=== PATIENT | female | born 1985 | race Caucasian/White ===

== ENCOUNTER → 2020-01-25 | Outpatient (CLI) | payer OTHER ==
[~2020-01-25] MED LIST: AZIT250 PO; BUPR100; BUPRENORPHN-NA1 EACH SL; DOCU100 PO; ESTNORT; FAMO40 PO; HYDACE10B PO; HYDACE5; HYDACE5 PO; LEVSOD50 PO; LORA1; LORA1 PO; LORA2; LORA2 PO; META800; METHI10; METHI10 PO; METO10; METO10 PO; METO100 PO; METO100ER; NAPR550 PO; ONDA4 PO; OXYACE5T PO; PRED20 PO; PROC25S PR; PROM25S PR; RXONDA4ODT MM; SERT100; SULTRIDS PO; [UNRECOGNIZED DRUG - OTHER]
== END | disposition home or self-care (01) ==
LOC: LAB SHORT 10:44 → LAB EV 10:44
DX: B37.49 Other urogenital candidiasis (principal)
CPT/HCPCS: 87077; 87086; 87186

== ENCOUNTER 2024-12-30 21:32 | Emergency (ER) | payer OTHER ==
[~2024-12-30] VITALS: Ht 154.9 cm; Wt 68.0 kg
[2024-12-30 22:13] LABS: BASOPHILS ABSOLUTE AUTO 0.08 K/mm3 (0.00-0.23); BASOPHILS PERCENT AUTO 2 % (0-2); EOSINOPHILS ABSOLUTE AUTO 0.03 K/mm3 (0.00-0.68); EOSINOPHILS PERCENT AUTO 1 % (0-6); Hematocrit 30.2 % (33.0-51.0); Hemoglobin 11.3 g/dL (11.5-16.0); IMMATURE GRAN ABSOLUTE AUTO 0.05 K/mm3 (0.00-0.10); IMMATURE GRAN PERCENT AUTO 1 % (0-1); LYMPHOCYTES ABSOLUTE AUTO 0.96 K/mm3 (0.84-5.20); LYMPHOCYTES PERCENT AUTO 18 % (21-46); MONOCYTES ABSOLUTE AUTO 0.54 K/mm3 (0.16-1.47); MONOCYTES PERCENT AUTO 10 % (4-13); Mean Corpuscular HGB 40.2 pg (26.0-34.0); Mean Corpuscular HGB Conc 37.4 g/dL (31.5-36.5); Mean Corpuscular Volume 108 fL (80-100); Mean Platelet Volume 10.6 fL (9.1-12.4); NEUTROPHILS ABSOLUTE AUTO 3.56 K/mm3 (1.96-9.15); NEUTROPHILS PERCENT AUTO 68 % (41-73); Platelet Count 168 K/mm3 (150-400); RDW Coefficient Variation 12.1 % (11.7-14.2); RDW Standard Deviation 47.8 fL (35.1-46.3); Red Blood Cell Count 2.81 M/mm3 (3.80-5.20); White Blood Cell Count 5.22 K/mm3 (4.00-11.30)
[2024-12-30 22:41] LABS: Albumin, Blood 3.9 g/dL (3.4-5.0); Albumin/Globulin Ratio 1.1 (0.8-1.8); Bilirubin, Total 0.6 mg/dL (0.1-1.0); Bun/Creatinine Ratio 7.1 (12.0-20.0); Calcium, Blood 8.7 mg/dL (8.5-10.1); Creatinine, Blood 0.57 mg/dL (0.40-1.00); Globulin, Blood 3.5 g/dL (2.2-4.0); Potassium, Blood 3.3 mmol/L (3.5-5.5); Total Protein, Blood 7.4 g/dL (6.4-8.2)
[2024-12-31] MEDS ORDERED: NS 1,000 ML IV SCH ×2 (01:05→01:25)
[2024-12-31 01:15] LABS: Source, Urine Clean Catch
[2024-12-31] MEDS ORDERED: Potassium Chloride 20 MEQ TabCR PO ONE (01:15)
[2024-12-31 01:24] LABS: Bilirubin, Urine Neg (Neg); Blood, Urine Neg (Neg); Glucose Qualitative, Urine Neg (Neg); Ketones, Urine Neg (Neg); Leukocyte Esterase, Urine Neg (Neg); Nitrite, Urine Neg (Neg); Protein, Urine Neg (Neg); Specific Gravity, Urine 1.005 (1.003-1.022); Urobilinogen, Urine NORM (Normal)
[2024-12-31 01:29] LABS: Appearance, Urine Clear (Clear); Color, Urine Pale Yellow (P-Yellow)
[2024-12-31 02:04] LABS: Magnesium, Blood 1.2 mg/dL (1.6-2.4)
[2024-12-31] MEDS ORDERED: Magnesium Sulf 2 GM/Water 50ML 50 ML IV ONE (03:10)
[2024-12-31 04:49] LABS: Free Thyroxine 0.12 ng/dL (0.70-1.60)
[2024-12-31 06:11] LABS: Bun/Creatinine Ratio 5.6 (12.0-20.0); Calcium, Blood 8.7 mg/dL (8.5-10.1); Creatinine, Blood 0.53 mg/dL (0.40-1.00); Potassium, Blood 4.2 mmol/L (3.5-5.5)
[2024-12-31 07:00] VITALS: BP 101/73
== END 2024-12-31 07:08 | disposition home or self-care (01) ==
LOC: ER 21:32
PROVIDERS: Internal Medicine; Student in an Organized Health Care Education/Training Program
DX: F10.20 Alcohol dependence, uncomplicated (principal); R10.9 Unspecified abdominal pain; Z79.52 Long term (current) use of systemic steroids; Z79.899 Other long term (current) drug therapy
CPT/HCPCS: 74177; 80048; 80053; 81003; 81025; 83690; 83735; 83880; 84439; 84443; 84703; 85025; 96361; 96365; 96366; 99284-25; A9270; J3475; J7030; Q9967

== ENCOUNTER 2025-04-08 03:30 | Inpatient (IN) | payer OTHER ==
[~2025-04-08] VITALS: Ht 154.9 cm; Wt 66.1 kg
[2025-04-08 04:47] LABS: BASOPHILS ABSOLUTE AUTO 0.07 K/mm3 (0.00-0.23); BASOPHILS PERCENT AUTO 1 % (0-2); EOSINOPHILS ABSOLUTE AUTO 0.04 K/mm3 (0.00-0.68); EOSINOPHILS PERCENT AUTO 1 % (0-6); Hematocrit 29.8 % (33.0-51.0); Hemoglobin 10.8 g/dL (11.5-16.0); IMMATURE GRAN ABSOLUTE AUTO 0.06 K/mm3 (0.00-0.10); IMMATURE GRAN PERCENT AUTO 1 % (0-1); LYMPHOCYTES PERCENT AUTO 27 % (21-46); MONOCYTES ABSOLUTE AUTO 0.35 K/mm3 (0.16-1.47); MONOCYTES PERCENT AUTO 7 % (4-13); Mean Corpuscular HGB 40.3 pg (26.0-34.0); Mean Corpuscular HGB Conc 36.2 g/dL (31.5-36.5); Mean Corpuscular Volume 111 fL (80-100); Mean Platelet Volume 11.1 fL (9.1-12.4); NEUTROPHILS ABSOLUTE AUTO 3.35 K/mm3 (1.96-9.15); NEUTROPHILS PERCENT AUTO 64 % (41-73); NRBC ABSOLUTE 0.02 K/mm3 (0.00-0.02); NRBC Auto 0.4 /100 WBC (0.0-0.2); Platelet Count 174 K/mm3 (150-400); RDW Coefficient Variation 16.8 % (11.7-14.2); Red Blood Cell Count 2.68 M/mm3 (3.80-5.20); White Blood Cell Count 5.27 K/mm3 (4.00-11.30)
[2025-04-08 05:02] LABS: Albumin/Globulin Ratio 1.2 (0.8-1.8); Bilirubin, Total 1.3 mg/dL (0.1-1.0); Bun/Creatinine Ratio 12.6 (12.0-20.0); Calcium, Blood 9.3 mg/dL (8.5-10.1); Creatinine, Blood 0.56 mg/dL (0.40-1.00); Globulin, Blood 3.4 g/dL (2.2-4.0); Potassium, Blood 3.3 mmol/L (3.5-5.5); Total Protein, Blood 7.4 g/dL (6.4-8.2)
[2025-04-08] MEDS ORDERED: Lactated Ringer's 1,000 ML IV SCH ×2 (08:25→16:00)
[2025-04-08 09:20] LABS: Free Thyroxine 0.11 ng/dL (0.70-1.60)
[2025-04-08] MEDS ORDERED: Potassium Chloride 20 MEQ TabCR PO ONE (10:45)
[2025-04-08 11:17] LABS: Magnesium, Blood 1.4 mg/dL (1.6-2.4); Phosphorus, Blood 3.6 mg/dL (2.5-4.9)
[2025-04-08] MEDS ORDERED: NS 1,000 ML IV ONE (11:58)
[2025-04-08] MEDS ORDERED: NS 1,000 ML IV SCH (12:00)
[2025-04-08 12:26] LABS: Albumin, Blood 3.5 g/dL (3.4-5.0); Albumin/Globulin Ratio 1.1 (0.8-1.8); Bilirubin, Total 1.4 mg/dL (0.1-1.0); Bun/Creatinine Ratio 14.4 (12.0-20.0); Creatinine, Blood 0.49 mg/dL (0.40-1.00); Globulin, Blood 3.3 g/dL (2.2-4.0); Potassium, Blood 4.5 mmol/L (3.5-5.5); Total Protein, Blood 6.8 g/dL (6.4-8.2)
[2025-04-08] MEDS ORDERED: Thiamine HCl 100 MG in NS 50 ML IV ONE (13:20)
[2025-04-08] MEDS ORDERED: PHENobarbitaL sodium 130 MG/ML VIAL IV ONE (13:40)
[2025-04-08] MEDS ORDERED: LORazepam 2 MG/ML 1ML Injection IV ONE (14:55)
[2025-04-08] MEDS ORDERED: LORazepam 2 MG/ML 1ML Injection IV PRN ×3 (16:00→16:05)
[2025-04-08] MEDS ORDERED: Levothyroxine Sodium 100 MCG Vial IV SCH (16:00)
[2025-04-08] MEDS ORDERED: Magnesium Hydroxide Conc 10 ML UDC PO PRN (16:05)
[2025-04-08] MEDS ORDERED: ChlordiazePOXIDE 25 MG Cap PO PRN ×2 (16:05)
[2025-04-08] MEDS ORDERED: Ondansetron 4 MG TAB PO PRN (16:05)
[2025-04-08] MEDS ORDERED: Potassium Chl 20MEQ/Water100ML 100 ML IV STA (16:10)
[2025-04-08] MEDS ORDERED: Magnesium Sulf 2 GM/Water 50ML 50 ML IV ONE (16:15)
[2025-04-08 16:24] LABS: IMMATURE RETIC FRACTION 14.3 % (2.3-16.0); RETIC HGB EQUIVALENT 43.6 pg (28.20-36.60); RETICULOCYTE ABSOLUTE 0.055 M/mm3 (0.0200-0.1100); RETICULOCYTE COUNT PERCENT 2.1 % (0.50-2.50)
[2025-04-08] MEDS ORDERED: Thiamine HCl 100 MG in NS 50 ML IV SCH (16:30)
[2025-04-08] MEDS ORDERED: Folic Acid 1 MG in NS 50 ML IV SCH (18:00)
[2025-04-08 18:38] VITALS: BP 114/89
[2025-04-08 19:12] LABS: Source, Urine Clean Catch
[2025-04-08 19:20] LABS: Appearance, Urine Clear (Clear); Bilirubin, Urine Neg (Neg); Blood, Urine Neg (Neg); Color, Urine Amber (P-Yellow); Glucose Qualitative, Urine Neg (Neg); Ketones, Urine 3+ (Neg); Leukocyte Esterase, Urine 1+ (Neg); Nitrite, Urine Neg (Neg); Protein, Urine 2+ (Neg); Specific Gravity, Urine 1.015 (1.003-1.022); Urobilinogen, Urine 1+ (Normal)
[2025-04-08 19:26] LABS: Bacteria Many /hpf; Mucus Mod (0-Heavy); Red Blood Cells, Urine 0-2 /hpf (0-2); Squamous Epithelial Cells Few /hpf (Few)
[2025-04-08 19:33] LABS: U Barbituate Screen DETECTED
[2025-04-08 19:34] LABS: U Amphetamine Screen Not Detected; U Benzodiazapine Screen DETECTED; U Buprenorphine Screen DETECTED; U Cannabinoids Screen Not Detected; U Cocaine Screen Not Detected; U Methadone Screen Not Detected; U Methamphetamine Screen Not Detected; U Opiates Screen Not Detected; U Oxycodone Screen Not Detected; U Phencyclidine Screen Not Detected
[2025-04-08 20:31] VITALS: BP 109/84
[2025-04-08] MEDS ORDERED: Docusate Sodium 100 MG Cap PO SCH (21:00)
[2025-04-08 23:04] VITALS: BP 103/84
[2025-04-09] VITALS (7 sets, daily range): BP systolic 90–109; BP diastolic 65–87
--- NOTE | 2025-04-09 00:54 | NUR ---
PT CIWA SCORES INCREASING, LAST CIWA SCORE 15, ATTEMPTING TO MEDICATE PT PER EMAR, PT REFUSING MEDICATIONS. EDUCATION PROVIDED REGARDING DIAGNOSIS, PLAN OF CARE, MEDICATION USAGE, ETC. PT STATED SHE DID NOT WANT TO STOP DRINKING YET, SHE REQUESTED TO HAVE MORE "PEOPLE IN HER ROOM", SHE ALSO STATED SHE WISHED TO LEAVE THE HOSPITAL. THIS RN HELPED PT CALL HER FAMILY ON THE PHONE. PTS MOTHER SAYS SHE IS NOT CAPAPBLE OF TAKING CARE OF THE PT AT HOME WHILE SHE IS IN THIS STATE AND CANNOT PICK HER UP, BUT WAS ABLE TO CONVINCE PT TO TAKE PRESCRIBED MEDICATIONS. CIWA REMAINS AT 15, PT AGAIN REFUSING MEDICATION.
[2025-04-09 04:30] LABS: Albumin, Blood 3.6 g/dL (3.4-5.0); Albumin/Globulin Ratio 1.2 (0.8-1.8); Bilirubin, Total 1.1 mg/dL (0.1-1.0); Bun/Creatinine Ratio 15.8 (12.0-20.0); Calcium, Blood 8.3 mg/dL (8.5-10.1); Creatinine, Blood 0.44 mg/dL (0.40-1.00); Phosphorus, Blood 2.4 mg/dL (2.5-4.9); Potassium, Blood 3.9 mmol/L (3.5-5.5); Total Protein, Blood 6.6 g/dL (6.4-8.2)
[2025-04-09 05:02] LABS: BASOPHILS ABSOLUTE AUTO 0.06 K/mm3 (0.00-0.23); BASOPHILS PERCENT AUTO 2 % (0-2); EOSINOPHILS ABSOLUTE AUTO 0.06 K/mm3 (0.00-0.68); EOSINOPHILS PERCENT AUTO 2 % (0-6); Hematocrit 27.3 % (33.0-51.0); Hemoglobin 9.7 g/dL (11.5-16.0); IMMATURE GRAN ABSOLUTE AUTO 0.04 K/mm3 (0.00-0.10); IMMATURE GRAN PERCENT AUTO 1 % (0-1); LYMPHOCYTES ABSOLUTE AUTO 1.37 K/mm3 (0.84-5.20); LYMPHOCYTES PERCENT AUTO 36 % (21-46); MONOCYTES ABSOLUTE AUTO 0.28 K/mm3 (0.16-1.47); MONOCYTES PERCENT AUTO 7 % (4-13); Mean Corpuscular HGB 40.4 pg (26.0-34.0); Mean Corpuscular HGB Conc 35.5 g/dL (31.5-36.5); Mean Corpuscular Volume 114 fL (80-100); Mean Platelet Volume 10.2 fL (9.1-12.4); NEUTROPHILS ABSOLUTE AUTO 1.96 K/mm3 (1.96-9.15); NEUTROPHILS PERCENT AUTO 52 % (41-73); NRBC ABSOLUTE 0.03 K/mm3 (0.00-0.02); NRBC Auto 0.8 /100 WBC (0.0-0.2); Platelet Count 145 K/mm3 (150-400); RDW Coefficient Variation 16.7 % (11.7-14.2); RDW Standard Deviation 68.9 fL (35.1-46.3); White Blood Cell Count 3.77 K/mm3 (4.00-11.30)
--- NOTE | 2025-04-09 06:08 | NUR ---
SHIFT SUMMARY - PT A/O TO SELF, PLACE, UNSURE OF DATE. CIWA SCORES 8-15 OVER THE COURSE OF THE SHIFT. PT DENIES PAIN. ALSO REFUSED MEDICATIONS USED TO TREAT WITHDRAWAL SEVERAL TIMES AND STATES SHE WANTS TO GO CLEM. PT PROVIDED WITH COPIOUS AMOUNTS OF EDUCATION, FAMILY CONTACTED AND PERSUADED PATIENT TO TAKE MEDICATIONS PRESCRIBED AND STAY IN HOSPITAL. PT OCCASIONALLY REPORTS SEEING THINGS THAT ARE NOT SEEN BY HOSPITAL STAFF. CONTINUOUSLY EXPRESSING FEAR THAT HER EX BOYFRIEND WILL SHOW UP AND "TAKE" HER. BED ALARM ON, PT IMPUSIVELY WILL TRY TO WALK TO BATHROOM. PT DISPLAYS CONSIDERABLE WEAKNESS AND IS UNDABLE TO STAND ON HER OWN. USING BEDSIDE COMMODE WITH 1-2P ASSIST.
[2025-04-09] MEDS ORDERED: Nicotine 21 MG PATCH TOP SCH (09:00)
[2025-04-09] MEDS ORDERED: Enoxaparin 40 MG/0.4 ML SYR SC SCH (09:00)
--- NOTE | 2025-04-09 09:03 | NUR ---
FALL NOTE; THIS RN AND THE STUDENT ARRIVED IN THE ROOM TO GIVE PT HER MORNING MEDS WHEN NOISE TESTER AND A COUPLE OF NURSES WAS ALREADY IN THE ROOM REPORTING A FALL INCIDENT, PER REPORT BED ALARM WENT ON AND THE BREAK NURSE AND ANOTHER FLOOR NURSE ATTENDED THE ALARM PT WAS ALREADY DOWN AT THE END OF THE BED FACING DOWN. NOTED SOME BLOOD IN THE MOUTH, SKIN EXCORIATION ON THE LEFT KNEE. PT DENIES ANY PAIN AND HEADACHES. PT REPORTED THAT SHE NEEDED TO PEE SO SHE GOT UP AND HER KNEE COLLAPSED DUE TO WEAKNESS AND FALL. REMAINS ALERT AND ORIENTED TO SELF AND FAMILY ONLY PT IS PARANOID WITH SOME HALLUCINATIONS BOTH AUDITORY AND VISUAL. CIWA AT 13-15. PT ASSISTED UP TO BSC VIA 2-3 PA THEN BACK TO BED VIA GAIT BELT. PT OFFERED CIWA MEDICATIONS REFUSED TO TAKE LIBRIUM EVEN AFTER CONSISTENT EDUCATION FOR ETOH WITHDRAWAL TX, PT FINALLY AGREED TO TAKE ATIVAN IV. FAMILY CALLED AND WAS GIVEN UPDATE REGARDING FALL AND PT STATUS. DR MONAHAN CALLED AND MADE AWARE WELL. CURRENTLY IN THE ROOM ROUNDING. PREMAINED IN BED WITH BED ALARM ON FOR SAFETY WILL CONTINUE TO MONITOR
[2025-04-09] MEDS ORDERED: NS 1,000 ML IV SCH (12:00)
[2025-04-09 12:25] LABS: International Normalized Ratio 1.02; Prothrombin Time Results 10.9 Sec (9.7-11.5)
[2025-04-09 12:33] LABS: Magnesium, Blood 1.4 mg/dL (1.6-2.4)
[2025-04-09 12:53] LABS: Bun/Creatinine Ratio 14.1 (12.0-20.0); Calcium, Blood 8.4 mg/dL (8.5-10.1); Creatinine, Blood 0.43 mg/dL (0.40-1.00); Potassium, Blood 3.3 mmol/L (3.5-5.5)
[2025-04-09] MEDS ORDERED: Potassium Chloride 40 MEQ in NS 250 ML IV ONE (13:35)
[2025-04-09] MEDS ORDERED: Magnesium Sul 4 GM/Water100 ML 100 ML IV ONE (13:35)
--- NOTE | 2025-04-09 16:58 | NUR ---
SHIFT SUMMARY: PT STARTED THE SHIFT AT A/OX1, SHE IS NOW A/OX3-4. SHE IS ABLE TO STATE WHERE SHE IS, MONTH AND YEAR, AND SOMETIMES WHY SHE IS HERE. PT IS A 1-2X TO BS DUE TO WEAKNESS AND TREMORS.BLOOD PRESSURES HAVE BEEN SOFT, PRIMARY RN RECIEVED AN ORDER FOR FLUIDS. 2L NC REQUIRED WHEN SLEEPING DUE TO PT DESATTING. PT EXPERIENCED MILD HALLUCINATIONS TODAY. W/DRAWL SYMPTOMS MANAGED PER EMAR. CIWA SCORES HAVE RANGED FROM 6-15 VARYING WITH PATIENTS MEDICATION COMPLIANCE. THIS AM PT WAS CONFUSED, DISTRUSTFUL, AND REFUSING CARE. PT HAD A FALL THIS MORNING. PT SCRAPED L KNEE DURING FALL. DID NOT BLEED, NO WOUND DRESSING NEEDED. PT FAMILY VISITED TODAY, PT WAS MORE AGREEABLE TO CARE WHEN THEY WERE PRESENT. PT HAS NOT BEEN CALLING TO MAKE NEEDS KNOWN. FREQUENT ROUNDING WAS DONE TO ENSURE PT SAFETY AND NEEDS WERE MET. ENCOURAGED PT INTAKE T/O SHIFT. WILL REPORT TO ONCOMING RN.
[2025-04-09] MEDS ORDERED: Acetaminophen 325 MG TABLET PO SCH (17:00)
[2025-04-10 05:37] LABS: Albumin, Blood 3.1 g/dL (3.4-5.0); Albumin/Globulin Ratio 1.2 (0.8-1.8); Bilirubin, Total 0.7 mg/dL (0.1-1.0); Bun/Creatinine Ratio 11.2 (12.0-20.0); Calcium, Blood 8.1 mg/dL (8.5-10.1); Creatinine, Blood 0.45 mg/dL (0.40-1.00); Globulin, Blood 2.6 g/dL (2.2-4.0); Magnesium, Blood 2.7 mg/dL (1.6-2.4); Phosphorus, Blood 2.6 mg/dL (2.5-4.9); Potassium, Blood 3.6 mmol/L (3.5-5.5); Total Protein, Blood 5.7 g/dL (6.4-8.2)
--- NOTE | 2025-04-10 06:12 | NUR ---
SHIFT SUMMARY - PT ALERT AND ORIENTED TO SELF, PEOPLE, PLACE AT TIMES. SHE IS QUIET, BUT MORE COOPERATIVE WITH CARE TODAY. SHE DENIES ANY PAIN AT THIS TIME. BED ALARM ON DUE TO PT FORGETFULLNESS USING CALL LIGHT AND EXITING BED WITHOUT ASSISTANCE. ON CONTINUOUS TELEMETRY, SINUS RHYTHM, HR IN 90 S. PULSES PALPABLE BY TOUCH. PT ON RA WHILE AWAKE AND ON 2L NC WHILE SLEEPING TO MAINTAIN O2 SATS ABOVE 90%. BREATHING IS SHALLOW AND UNLABORED. REQUIRES A 2P ASSIST TO BEDSIDE COMMODE. URINE HAD A VERY SLIGHT PINK TINGE, WILL CONTINUE TO MONITOR. PT DENIES AND PAIN OR BURNING WITH URINATION.
[2025-04-10 07:27] LABS: BASOPHILS ABSOLUTE AUTO 0.08 K/mm3 (0.00-0.23); BASOPHILS PERCENT AUTO 2 % (0-2); EOSINOPHILS ABSOLUTE AUTO 0.08 K/mm3 (0.00-0.68); EOSINOPHILS PERCENT AUTO 2 % (0-6); Hematocrit 25.8 % (33.0-51.0); Hemoglobin 8.9 g/dL (11.5-16.0); IMMATURE GRAN ABSOLUTE AUTO 0.05 K/mm3 (0.00-0.10); IMMATURE GRAN PERCENT AUTO 1 % (0-1); LYMPHOCYTES PERCENT AUTO 35 % (21-46); MONOCYTES ABSOLUTE AUTO 0.33 K/mm3 (0.16-1.47); MONOCYTES PERCENT AUTO 8 % (4-13); Mean Corpuscular HGB 40.6 pg (26.0-34.0); Mean Corpuscular HGB Conc 34.5 g/dL (31.5-36.5); Mean Corpuscular Volume 118 fL (80-100); Mean Platelet Volume 12.2 fL (9.1-12.4); NEUTROPHILS ABSOLUTE AUTO 2.24 K/mm3 (1.96-9.15); NEUTROPHILS PERCENT AUTO 52 % (41-73); Platelet Count 128 K/mm3 (150-400); RDW Standard Deviation 72.7 fL (35.1-46.3); Red Blood Cell Count 2.19 M/mm3 (3.80-5.20); White Blood Cell Count 4.28 K/mm3 (4.00-11.30)
[2025-04-10 07:38] VITALS: BP 100/79
[2025-04-10 11:34] VITALS: BP 102/75
[2025-04-10] MEDS ORDERED: Atorvastatin 40 MG Tab PO SCH (12:00)
--- NOTE | 2025-04-10 15:55 | NUR ---
PALLIATIVE CARE VISIT: RECEIVED CONSULT REQUEST FOR ASSISTANCE WITH COMPLETING ADVANCE DIRECTIVE. MET WITH PT AND MOTHER IN THE ROOM. PT IS A/O X4 ABLE TO MAKE NEEDS KNOWN. SHE AGREES SHE WANTS TO COMPLETE ADVANCE DIRECTIVE AND NAME HER MOTHER [employer]. GAVE AD WORKBOOK TO THEM AND ASSISTED WITH EDUCATING THEM ON SECTIONS TO COMPLETE. ONCE COMPLETED HAD 2 WITNESS SIGN. SENT COPY OF AD TO MEDICAL RECORDS. ORIGINAL GIVEN BACK TO PT.
[2025-04-10 16:04] VITALS: BP 97/68
[2025-04-10] MEDS ORDERED: Pantoprazole Sodium 40 MG Injection IV SCH (16:30)
--- NOTE | 2025-04-10 17:02 | NUR ---
PT SUMMARY PT IS ALERT AND ORIENTED X4, A LITTLE SLOW TO RESPOND, VERY WEAK WHEN PT GETS UP BUT OKAY WITH A NURSE ASSIST. HEART RATE IN THE 80s, BLOOD PRESSURE STABLE AT 97/68 (78), PT DENIES CHEST PAIN UPON ASSESSMENT. PT IS ON ROOM AIR, SATTING >92%, SOUNDS CLEAR/DIMINISHED. NO OTHER INTERVENTIONS AT THIS TIME. CIWA IS A 3, NO MEDICATIONS GIVEN TODAY FOR CIWA. PLAN OF CARE CONTINUED.
[2025-04-10 20:24] VITALS: BP 108/74
[2025-04-10] MEDS ORDERED: GuaiFENesin 100 MG/5 ML 5ML UDC PO ONE (22:30)
[2025-04-10] MEDS ORDERED: D5W-1/2NS KCl 20mEq 1,000 ML IV SCH (22:30)
[2025-04-11 00:34] VITALS: BP 90/64
[2025-04-11 04:08] LABS: BASOPHILS ABSOLUTE AUTO 0.07 K/mm3 (0.00-0.23); BASOPHILS PERCENT AUTO 2 % (0-2); EOSINOPHILS ABSOLUTE AUTO 0.09 K/mm3 (0.00-0.68); EOSINOPHILS PERCENT AUTO 2 % (0-6); Hematocrit 26.5 % (33.0-51.0); Hemoglobin 9.2 g/dL (11.5-16.0); IMMATURE GRAN ABSOLUTE AUTO 0.06 K/mm3 (0.00-0.10); IMMATURE GRAN PERCENT AUTO 1 % (0-1); LYMPHOCYTES ABSOLUTE AUTO 1.96 K/mm3 (0.84-5.20); LYMPHOCYTES PERCENT AUTO 41 % (21-46); MONOCYTES ABSOLUTE AUTO 0.43 K/mm3 (0.16-1.47); MONOCYTES PERCENT AUTO 9 % (4-13); Mean Corpuscular HGB 40.7 pg (26.0-34.0); Mean Corpuscular HGB Conc 34.7 g/dL (31.5-36.5); Mean Corpuscular Volume 117 fL (80-100); Mean Platelet Volume 11.9 fL (9.1-12.4); NEUTROPHILS ABSOLUTE AUTO 2.13 K/mm3 (1.96-9.15); NEUTROPHILS PERCENT AUTO 45 % (41-73); Platelet Count 134 K/mm3 (150-400); RDW Coefficient Variation 16.9 % (11.7-14.2); RDW Standard Deviation 72.1 fL (35.1-46.3); Red Blood Cell Count 2.26 M/mm3 (3.80-5.20); White Blood Cell Count 4.74 K/mm3 (4.00-11.30)
[2025-04-11 04:28] LABS: Albumin, Blood 3.2 g/dL (3.4-5.0); Albumin/Globulin Ratio 1.1 (0.8-1.8); Bilirubin, Total 0.5 mg/dL (0.1-1.0); Bun/Creatinine Ratio 9.5 (12.0-20.0); Calcium, Blood 8.2 mg/dL (8.5-10.1); Creatinine, Blood 0.42 mg/dL (0.40-1.00); Globulin, Blood 2.9 g/dL (2.2-4.0); Magnesium, Blood 2.3 mg/dL (1.6-2.4); Potassium, Blood 3.5 mmol/L (3.5-5.5); Total Protein, Blood 6.1 g/dL (6.4-8.2)
[2025-04-11 05:36] VITALS: BP 88/70
[2025-04-11 06:18] VITALS: BP 105/75
[2025-04-11 08:00] VITALS: BP 99/75
--- NOTE | 2025-04-11 09:59 | NUR ---
THIS RN ASSUMED CARE OF PT AT 0700. PT IS ALERT AND ORIENTED X4, FOLLOWS COMMANDS AND CALLS OUT APPROPRIATELY. PT HEART RATE IN THE 70s, BLOOD PRESSURE STABLE AT 99/75, PT DENIES CHEST PAIN UPON ASSESSMENT. PT IS ON ROOM AIR SATTING >95%, PT DENIES SHORTNESS OF BREATH UPON ASSESSMENT. PT IS ABLE TO GET UP AND USE BATHROOM WITH NURSES ASSIST. CIWA SCORE HAS BEEN ZERO. HAS SEEN PT BEDSIDE AND MADE PT MEDICAL STATUS AND D/C CIWA PROTOCOL. NO OTHER INTERVENTIONS AT THIS TIME. PLAN OF CARE CONTINUED.
[2025-04-11] MEDS ORDERED: TraZODone HCl 50 MG Tab PO PRN (14:20)
[2025-04-11 16:16] VITALS: BP 112/86
--- NOTE | 2025-04-11 17:57 | NUR ---
PT SUMMARY PT IS ALERT AND ORIENTED X4, FOLLOWS COMMANDS AND CALLS OUT APPROPRIATELY. PT WAS ABLE TO WALK THE HALLS WITH OCCUPATIONAL THERAPY TODAY AND PT LOOKS AND FEELS MUCH BETTER TODAY, PT IS NOW MEDICAL STATUS. PT AND PT FAMILY BROUGHT TO MY ATTENTION FUNGUS ON HER TOES, DR. MONAHAN HAS BEEN NOTIFIED AND SAID PT WILL NEED TO FOLLOW-UP WITH PCP OUTPT. PT ALSO REQUESTED THAT THEY GO TO [employer]YSC[facility] PLACE OUTSIDE OF HOME DUE TO LOTS OF ANIMALS IN THE HOUSE. POSSIBLE DISCHARGE TOMORROW. NO OTHER INTERVENTIONS AT THIS TIME. PLAN OF CARE CONTINUED.
[2025-04-11 19:29] VITALS: BP 99/75
[2025-04-12 04:26] VITALS: BP 99/68
--- NOTE | 2025-04-12 05:03 | NUR ---
A & O x 4 . ASTRID. ABLE TO VERBALIZE NEEDS. I PERSON ANDREE TO BED SIDE COMMODE. AMBULATES WITH SHUFFLED GAIT. ON RA WITH SATURAION >95. DENIES PAIN. RESTING IN BED WITH CALL BED WITHIN REACH AND BED AT THE LOWEST POSITION. CALLS APPROPRIATELY.
[2025-04-12 07:46] LABS: BASOPHILS ABSOLUTE AUTO 0.08 K/mm3 (0.00-0.23); BASOPHILS PERCENT AUTO 2 % (0-2); EOSINOPHILS ABSOLUTE AUTO 0.07 K/mm3 (0.00-0.68); EOSINOPHILS PERCENT AUTO 2 % (0-6); Hematocrit 27.1 % (33.0-51.0); Hemoglobin 9.5 g/dL (11.5-16.0); IMMATURE GRAN ABSOLUTE AUTO 0.05 K/mm3 (0.00-0.10); IMMATURE GRAN PERCENT AUTO 1 % (0-1); LYMPHOCYTES ABSOLUTE AUTO 1.71 K/mm3 (0.84-5.20); LYMPHOCYTES PERCENT AUTO 37 % (21-46); MONOCYTES ABSOLUTE AUTO 0.47 K/mm3 (0.16-1.47); MONOCYTES PERCENT AUTO 10 % (4-13); Mean Corpuscular HGB 41.1 pg (26.0-34.0); Mean Corpuscular HGB Conc 35.1 g/dL (31.5-36.5); Mean Corpuscular Volume 117 fL (80-100); NEUTROPHILS ABSOLUTE AUTO 2.21 K/mm3 (1.96-9.15); NEUTROPHILS PERCENT AUTO 48 % (41-73); Platelet Count 139 K/mm3 (150-400); RDW Coefficient Variation 17.1 % (11.7-14.2); Red Blood Cell Count 2.31 M/mm3 (3.80-5.20); White Blood Cell Count 4.59 K/mm3 (4.00-11.30)
[2025-04-12 08:37] LABS: Free Thyroxine 0.21 ng/dL (0.70-1.60)
[2025-04-12 08:38] LABS: Albumin, Blood 3.2 g/dL (3.4-5.0); Albumin/Globulin Ratio 1.1 (0.8-1.8); Bilirubin, Total 0.4 mg/dL (0.1-1.0); Bun/Creatinine Ratio 5.9 (12.0-20.0); Calcium, Blood 8.5 mg/dL (8.5-10.1); Creatinine, Blood 0.51 mg/dL (0.40-1.00); Potassium, Blood 3.7 mmol/L (3.5-5.5); Total Protein, Blood 6.2 g/dL (6.4-8.2)
[2025-04-12 09:12] VITALS: BP 101/77
[2025-04-12] MEDS ORDERED: ATOR40TA PO (11:34)
[2025-04-12] MEDS ORDERED: SYNTHROID100 MC1 PO (11:34)
[2025-04-12] MEDS ORDERED: FOLI1 PO (11:35)
[2025-04-12] MEDS ORDERED: OMEP20ER PO (11:36)
[2025-04-12] MEDS ORDERED: B-1100 M1 PO (11:37)
[2025-04-12] MEDS ORDERED: TRAZ50 PO (11:38)
--- NOTE | 2025-04-12 15:39 | NUR ---
DISCHARGE NOTE PT WAS ALERT AND ORIENTED X 4, VSS. SHE WAS A 1 ASSIST TO BEDSIDE COMMODE TO VOID. THIS RN REMOVED ALL IV CATHETERS AND ALSO PROVIDED DISCHARGE INSTRUCTIONS INCLUDED FOLLOW UP APPOINTMENTS, DISCHARGE MEDICATIONS. PT LEFT PCU AT APPROX. 1411 VIA WHEELCHAIR AND WAS ESCORTED BY THIS RN, HER BROTHER AND HER MOTHER TO [facility]. SHE LEFT WITH ALL OF HER PERSONAL BELONGINGS AND WAS STABLE UPON DISCHARGE.
== END 2025-04-12 17:15 | disposition home or self-care (01) | DRG 897 ==
LOC: ER 03:30 → PCU 15:57
PROVIDERS: Emergency Medicine; Physician Assistant; Student in an Organized Health Care Education/Training Program; ADMIT Internal Medicine
PROC: HZ2ZZZZ Detoxification Services for Substance Abuse Treatment (ICD-10-PCS; principal; 2025-04-08)
DX: F10.239 Alcohol dependence with withdrawal, unspecified (principal); E87.1 Hypo-osmolality and hyponatremia; D61.818 Other pancytopenia; K70.10 Alcoholic hepatitis without ascites; E03.9 Hypothyroidism, unspecified; F11.11 Opioid abuse, in remission; F17.210 Nicotine dependence, cigarettes, uncomplicated; E66.9 Obesity, unspecified; E87.6 Hypokalemia; D53.9 Nutritional anemia, unspecified; E83.42 Hypomagnesemia; K76.0 Fatty (change of) liver, not elsewhere classified; Z91.148 Patient's other noncompliance with medication regimen for other reason; G72.9 Myopathy, unspecified; W19.XXXA Unspecified fall, initial encounter; Z98.890 Other specified postprocedural states; Z68.29 Body mass index [BMI] 29.0-29.9, adult
CPT/HCPCS: 36415; 70450; 80048; 80053; 80320; 81001; 82140; 82533; 82550; 82607; 82746; 82947; 83690; 83721; 83735; 84100; 84439; 84443; 84703; 85025; 85045; 85610; 87086; 93005; 93010; 96361; 96365; 96375; 97110; 97116; 97162; 97165; 97530; 99285-25; A9270; J1650; J2060; J2470; J2560; J3411; J3475; J3480; J7030; J7050; J7120

== ENCOUNTER → 2025-06-14 | Outpatient (CLI) | payer OTHER ==
[~2025-06-14] MED LIST changes: +ATOR40TA PO; +B-1100 M1 PO; +FOLI1 PO; +OMEP20ER PO; +SYNTHROID100 MC1 PO; +TRAZ50 PO
[2025-06-14 12:45] LABS: BASOPHILS ABSOLUTE AUTO 0.04 K/mm3 (0.00-0.23); BASOPHILS PERCENT AUTO 0 % (0-2); EOSINOPHILS ABSOLUTE AUTO 0.13 K/mm3 (0.00-0.68); EOSINOPHILS PERCENT AUTO 1 % (0-6); Hematocrit 36.3 % (33.0-51.0); Hemoglobin 12.5 g/dL (11.5-16.0); IMMATURE GRAN ABSOLUTE AUTO 0.04 K/mm3 (0.00-0.10); IMMATURE GRAN PERCENT AUTO 0 % (0-1); LYMPHOCYTES ABSOLUTE AUTO 2.08 K/mm3 (0.84-5.20); LYMPHOCYTES PERCENT AUTO 18 % (21-46); MONOCYTES ABSOLUTE AUTO 1.10 K/mm3 (0.16-1.47); MONOCYTES PERCENT AUTO 10 % (4-13); Mean Corpuscular HGB Conc 34.4 g/dL (31.5-36.5); Mean Corpuscular Volume 101 fL (80-100); NEUTROPHILS ABSOLUTE AUTO 8.11 K/mm3 (1.96-9.15); NEUTROPHILS PERCENT AUTO 71 % (41-73); NRBC ABSOLUTE 0.00 K/mm3 (0.00-0.02); NRBC Auto 0.0 /100 WBC (0.0-0.2); Platelet Count 280 K/mm3 (150-400); RDW Coefficient Variation 13.0 % (11.7-14.2); RDW Standard Deviation 47.8 fL (35.1-46.3)
[2025-06-14 13:56] LABS: Alanine Aminotransfer (ALT/SGP 18.0 U/L (12-78); Albumin, Blood 3.7 g/dL (3.4-5.0); Albumin/Globulin Ratio 0.9 (0.8-1.8); Anion Gap 14.0 mmol/L (3-11); Aspartate Aminotrans (AST/SGOT 21.0 U/L (12-37); Bilirubin, Total 0.6 mg/dL (0.1-1.0); Blood Urea Nitrogen 8.0 mg/dL (8-24); CO2, Blood 26.0 mmol/L (21-32); Calcium, Blood 10.1 mg/dL (8.5-10.1); Chloride, Blood 102.0 mmol/L (98-108); Creatinine, Blood 0.42 mg/dL (0.40-1.00); Globulin, Blood 4.0 g/dL (2.2-4.0); Glucose, Blood 92.0 mg/dL (70-99); Potassium, Blood 4.0 mmol/L (3.5-5.5); Sodium, Blood 138.0 mmol/L (136-145); Total Protein, Blood 7.7 g/dL (6.4-8.2)
== END ==
LOC: LAB 12:40 → LAB SHORT 12:40
PROVIDERS: Chiropractor
DX: K04.7 Periapical abscess without sinus (principal)
CPT/HCPCS: 80053; 85025

== ENCOUNTER → 2025-10-28 | Outpatient (CLI) | payer OTHER ==
[2025-11-03 13:52] LABS: HPVG SOURCE Cervical
== END | disposition home or self-care (01) ==
LOC: LAB SHORT 12:15 → LAB 12:15
PROVIDERS: Nurse Practitioner Family
DX: Z01.419 Encounter for gynecological examination (general) (routine) without abnormal findings (principal)
CPT/HCPCS: 87624; 87625; G0145